=== PATIENT | female | born 1975 | race Two or more races ===

== ENCOUNTER 2020-07-06 07:50 | Emergency (ER) | payer OTHER ==
[~2020-07-06] VITALS: Ht 165.1 cm; Wt 72.7 kg
[2020-07-06 07:53] VITALS: BP 125/74
[2020-07-06] MEDS ORDERED: FAMOTIDINE 20 MG TABLET PO ONE (08:30)
[2020-07-06] MEDS ORDERED: PredniSONE 20 MG TABLET PO ONE (08:30)
[2020-07-06] MEDS ORDERED: DiphenhydrAMINE HCL 50 MG/ML VIAL IM ONE (08:30)
== END 2020-07-06 08:55 | disposition home or self-care (01) ==
LOC: EMS 07:50
DX: T78.40XA Allergy, unspecified, initial encounter (principal); Z90.710 Acquired absence of both cervix and uterus; X58.XXXA Exposure to other specified factors, initial encounter
CPT/HCPCS: 96372; 99283; J1200; J7512

== ENCOUNTER 2020-07-14 08:48 | Emergency (ER) | payer OTHER ==
[~2020-07-14] VITALS: Ht 165.1 cm; Wt 72.7 kg
[2020-07-14] MEDS ORDERED: DiphenhydrAMINE HCL 50 MG/ML VIAL IM ONE (10:00)
[2020-07-14] MEDS ORDERED: MethylPREDNISolone SOD SUCC 125 MG/2 ML VIAL IM ONE (10:00)
[2020-07-14 10:33] VITALS: BP 143/93
== END 2020-07-14 10:45 | disposition home or self-care (01) ==
LOC: EMS 08:54
DX: R21 Rash and other nonspecific skin eruption (principal); Z90.710 Acquired absence of both cervix and uterus
CPT/HCPCS: 96372; 99284; J1200; J2930

== ENCOUNTER 2020-07-25 06:36 | Emergency (ER) | payer OTHER ==
[~2020-07-25] VITALS: Ht 165.1 cm; Wt 73.6 kg
[2020-07-25] MEDS ORDERED: ACETAMINOPHEN 500 MG TABLET PO ONE (07:15)
[2020-07-25] MEDS ORDERED: KETOROLAC TROMETHAMINE 30 MG/ML VIAL IVP ONE (07:15)
[2020-07-25] MEDS ORDERED: SODIUM CHLORIDE 0.9% 1,000 ML IV ONE ×2 (07:15→07:45)
[2020-07-25 07:24] LABS: BASOPHILS % (AUTO) 0.2 % (0.0-2.0); EOSINOPHILS % (AUTO) 0.1 % (1.0-6.0); HEMATOCRIT 38.8 % (36-46); HEMOGLOBIN 12.8 g/dL (12.0-16.0); LYMPHOCYTES # (AUTO) 0.9 K/uL (1.0-4.8); MEAN CORPUSCULAR HEMOGLOBIN 30.4 pg (26.0-34.0); MEAN CORPUSCULAR HGB CONC 33.1 G/dL (31.0-37.0); MEAN CORPUSCULAR VOLUME 92 fL (80-100); MONOCYTES # (AUTO) 1.1 K/uL (0.1-1.0); NEUTROPHILS # (AUTO) 19.6 K/uL (1.8-7.7); PLATELET COUNT (AUTO) 246 K/uL (150-450); RED BLOOD CELL COUNT(AUTO) 4.22 MIL/uL (4.00-5.20); RED CELL DISTRIBUTION WIDTH 14.2 % (11.5-14.5)
[2020-07-25 07:26] LABS: NEUTROPHILS % (AUTO) 90.7 % (40.0-70.0)
[2020-07-25 07:53] LABS: ALANINE AMINOTRANSFERASE 16 U/L (12-78); ALBUMIN 3.4 g/dL (3.4-5.0); ALKALINE PHOSPHATASE 75 U/L (46-116); ANION GAP 10 mmol/L (8-16); ASPARTATE AMINOTRANSFERASE 12 U/L (15-37); BILIRUBIN,TOTAL 0.5 mg/dL (0.1-1.0); CALCIUM, TOTAL 8.3 mg/dL (8.8-10.5); CARBON DIOXIDE 28 mmol/L (22-29); CHLORIDE 98 mmol/L (98-107); GLOMERULAR FILTR. RATE CALC 54 mL/min (>60); GLUCOSE,RANDOM 94 mg/dL (70-110); HCG,QUANTITATIVE < 1 mIU/mL (0-6); LIPASE 77 U/L (73-393); SODIUM SERUM 136 mmol/L (136-145); TOTAL PROTEIN, SERUM 6.6 g/dL (6.4-8.2); UREA NITROGEN, BLOOD 7 mg/dL (7-18)
[2020-07-25 07:59] LABS: POTASSIUM 2.9 mmol/L (3.5-5.1)
[2020-07-25] MEDS ORDERED: POTASSIUM CHLORIDE 20 MEQ ER TABLET PO ONE (08:00)
[2020-07-25] MEDS ORDERED: POTASSIUM CHL 10 MEQ/WATER 50 ML IV ONE (08:00)
[2020-07-25 08:20] LABS: APPEARANCE,URINE CLEAR (CLEAR); BILIRUBIN,URINE NEGATIVE (NEGATIVE); GLUCOSE, URINE (UA) NEGATIVE (NEGATIVE); KETONES,URINE NEGATIVE (NEGATIVE); LEUKOCYTE ESTERASE ,URINE NEGATIVE (NEGATIVE); NITRATE,URINE NEGATIVE (NEGATIVE); OCCULT BLOOD,URINE SMALL (NEGATIVE); PH,URINE 5.5 (5.0-8.0); PROTEIN,URINE NEGATIVE (NEGATIVE); UROBILINOGEN,URINE 0.2 mg/dL (<=1.0)
[2020-07-25 08:31] LABS: BACTERIA,URINE None Seen /HPF (None Seen); RBC,URINE 0-2 /HPF (0-2); SQUAMOUS EPITHELIAL CELL,UR Few /LPF (None Seen)
[2020-07-25] MEDS ORDERED: SODIUM CHLORIDE 0.9% 100 ML ONE (08:36)
[2020-07-25] MEDS ORDERED: IOHEXOL 350 MG/ML 100 ML VIAL ONE (08:37)
[2020-07-25 09:40] VITALS: BP 94/57
[2020-07-25] MEDS ORDERED: CEPHALEXIN MONOHYDRATE 500 MG CAPSULE PO ONE (09:45)
== END 2020-07-25 09:54 | disposition home or self-care (01) ==
LOC: EMS 06:37
DX: N20.0 Calculus of kidney (principal); Z90.710 Acquired absence of both cervix and uterus
CPT/HCPCS: 36415; 71045; 74177; 80053; 81001; 83605; 83690; 84702; 85025; 87086; 96361; 96374; 99285; A9575; J1885; J3480; J7030; J7050; 87077

== ENCOUNTER 2021-07-02 17:35 | Emergency (ER) | payer OTHER ==
[~2021-07-02] VITALS: Ht 167.6 cm; Wt 76.8 kg
[2021-07-02 20:00] VITALS: BP 118/74
[2021-07-02] MEDS ORDERED: HydrOXYzine HCL 25 MG TABLET PO ONE (20:00)
[2021-07-02] MEDS ORDERED: HYDR-4527 PO (20:11)
[2021-07-02] MEDS ORDERED: PERM60CR19 TP (20:11)
[2021-07-02] MEDS ORDERED: MethylPREDNISolone SOD SUCC 125 MG/2 ML VIAL IM ONE (20:15)
== END 2021-07-02 20:39 | disposition home or self-care (01) ==
LOC: EMS 17:35
DX: R21 Rash and other nonspecific skin eruption (principal); L29.9 Pruritus, unspecified; L53.9 Erythematous condition, unspecified; Z90.710 Acquired absence of both cervix and uterus
CPT/HCPCS: 96372; 99283; J2930

== ENCOUNTER 2022-01-03 11:15 | Emergency (ER) | payer OTHER ==
[~2022-01-03] VITALS: Ht 165.1 cm; Wt 72.7 kg
[~2022-01-03 11:15] MED LIST: HYDR-4527 PO; PERM60CR19 TP
[2022-01-03] MEDS ORDERED: IBUP-1554 PO (14:43)
[2022-01-03] MEDS ORDERED: GABA-1181 PO (14:43)
[2022-01-03] MEDS ORDERED: CYCL-448 PO (14:43)
[2022-01-03] MEDS ORDERED: CEPH-558 PO (14:43)
[2022-01-03] MEDS ORDERED: BACL10TA PO (14:43)
[2022-01-03 15:00] VITALS: BP 136/83
== END 2022-01-03 15:09 | disposition home or self-care (01) ==
LOC: EMS 14:45
DX: M54.42 Lumbago with sciatica, left side (principal); L03.113 Cellulitis of right upper limb; Z90.710 Acquired absence of both cervix and uterus
CPT/HCPCS: 99283; Z7502

== ENCOUNTER 2022-04-18 10:00 | Emergency (ER) | payer OTHER ==
[~2022-04-18] VITALS: Ht 167.6 cm; Wt 72.7 kg
[~2022-04-18 10:00] MED LIST changes: +BACL10TA PO; +CEPH-558 PO; +CYCL-448 PO; +GABA-1181 PO; -HYDR-4527 PO; +IBUP-1554 PO; -PERM60CR19 TP
[2022-04-18] MEDS ORDERED: METHOCARBAMOL 500 MG TABLET PO ONE (14:30)
[2022-04-18] MEDS ORDERED: KETOROLAC TROMETHAMINE 60 MG/2 ML VIAL IM ONE (14:30)
[2022-04-18 14:51] LABS: GLUCOSE,POINT OF CARE 71 MG/DL (70-110)
[2022-04-18] MEDS ORDERED: IBUP-1554 PO (15:29)
[2022-04-18] MEDS ORDERED: GABA-1181 PO (15:29)
[2022-04-18] MEDS ORDERED: BACL10TA PO (15:29)
[2022-04-18] MEDS ORDERED: LIDO700A15 TP (15:29)
[2022-04-18 15:38] VITALS: BP 120/75
== END 2022-04-18 15:39 | disposition home or self-care (01) ==
LOC: EMS 10:03
DX: M54.42 Lumbago with sciatica, left side (principal); F12.90 Cannabis use, unspecified, uncomplicated; Z90.710 Acquired absence of both cervix and uterus
CPT/HCPCS: 99283; 82962; 96372; J1885

== ENCOUNTER 2022-12-11 15:31 | Emergency (ER) | payer OTHER ==
[~2022-12-11] VITALS: Ht 170.2 cm; Wt 68.2 kg
[~2022-12-11 15:31] MED LIST changes: -CEPH-558 PO; -CYCL-448 PO; +LIDO700A15 TP
[2022-12-11 15:42] VITALS: BP 123/84; PULSE 89; RESP 16; TEMP 98.3
[2022-12-11] MEDS ORDERED: CLOB15CR10 TP (15:55)
== END 2022-12-11 16:05 | disposition home or self-care (01) ==
LOC: EMS 15:33
DX: L25.8 Unspecified contact dermatitis due to other agents (principal); F12.90 Cannabis use, unspecified, uncomplicated; Z90.710 Acquired absence of both cervix and uterus
CPT/HCPCS: 99283; Z7502

== ENCOUNTER 2023-01-14 22:20 | Emergency (ER) | payer OTHER ==
[~2023-01-14] VITALS: Ht 160 cm; Wt 61.0 kg
[~2023-01-14 22:20] MED LIST changes: -BACL10TA PO; +CLOB15CR10 TP; -IBUP-1554 PO; -LIDO700A15 TP
[2023-01-14 22:25] VITALS: TEMP 98
[2023-01-14 22:45] VITALS: BP 115/71; PULSE 78; RESP 16
[2023-01-14] MEDS ORDERED: PERM59LI8 TP ×2 (23:40→23:53)
[2023-01-14] MEDS ORDERED: PERM60CR19 TP ×2 (23:40→23:53)
== END 2023-01-15 00:01 | disposition home or self-care (01) ==
LOC: EMS 22:22
DX: B86 Scabies (principal); B85.2 Pediculosis, unspecified; F12.90 Cannabis use, unspecified, uncomplicated; Z90.710 Acquired absence of both cervix and uterus
CPT/HCPCS: 99282; Z7502

== ENCOUNTER 2023-02-18 17:05 | Emergency (ER) | payer OTHER ==
[~2023-02-18] VITALS: Ht 165.1 cm; Wt 63.6 kg
[~2023-02-18 17:05] MED LIST changes: +PERM59LI8 TP; +PERM60CR19 TP
[2023-02-18 17:18] VITALS: TEMP 98.4
[2023-02-18] MEDS ORDERED: CHLO1CAP PO (18:55)
[2023-02-18 19:00] VITALS: BP 133/99; PULSE 134; RESP 16
== END 2023-02-18 22:08 | disposition home or self-care (01) ==
LOC: EMS 17:08
DX: B82.9 Intestinal parasitism, unspecified (principal); L25.9 Unspecified contact dermatitis, unspecified cause; F12.90 Cannabis use, unspecified, uncomplicated; Z90.710 Acquired absence of both cervix and uterus
CPT/HCPCS: 99283; Z7502

== ENCOUNTER 2023-03-04 21:15 | Emergency (ER) | payer OTHER ==
[~2023-03-04] VITALS: Ht 167.6 cm; Wt 72.7 kg
[~2023-03-04 21:15] MED LIST changes: +CHLO1CAP PO
[2023-03-04 21:56] VITALS: BP 131/85; PULSE 106; RESP 22; TEMP 98
[2023-03-04] MEDS ORDERED: HYDR-4808 PO (22:17)
[2023-03-04] MEDS ORDERED: PERM60CR19 TP (22:17)
[2023-03-04] MEDS ORDERED: CLOB15CR10 TP (22:17)
== END 2023-03-04 22:45 | disposition home or self-care (01) ==
LOC: EMS 21:15
DX: B82.9 Intestinal parasitism, unspecified (principal); R21 Rash and other nonspecific skin eruption; F41.9 Anxiety disorder, unspecified; Z90.710 Acquired absence of both cervix and uterus; Z91.040 Latex allergy status
CPT/HCPCS: 99283; Z7502

== ENCOUNTER 2024-03-08 10:51 | Emergency (ER) | payer OTHER ==
[~2024-03-08] VITALS: Ht 167.6 cm; Wt 68.2 kg
[~2024-03-08 10:51] MED LIST changes: +HYDR-4808 PO
[2024-03-08 11:00] VITALS: BP 113/87; PULSE 108; RESP 16; TEMP 98.6; O2SAT 100
[2024-03-08 11:48] LABS: BASOPHILS % (AUTO) 0.2 % (0.0-2.0); EOSINOPHILS % (AUTO) 5.5 % (1.0-6.0); HEMATOCRIT 39.6 % (36-46); HEMOGLOBIN 13.2 g/dL (12.0-16.0); LYMPHOCYTES % (AUTO) 17.8 % (22.0-44.0); MEAN CORPUSCULAR HEMOGLOBIN 28.3 pg (26.0-34.0); MEAN CORPUSCULAR HGB CONC 33.3 G/dL (31.0-37.0); MEAN CORPUSCULAR VOLUME 85 fL (80-100); MONOCYTES # (AUTO) 0.5 K/uL (0.1-1.0); MONOCYTES % (AUTO) 8.5 % (2.0-9.0); NEUTROPHILS # (AUTO) 3.7 K/uL (1.8-7.7); PLATELET COUNT (AUTO) 304 K/uL (150-450); RED BLOOD CELL COUNT(AUTO) 4.67 MIL/uL (4.00-5.20); RED CELL DISTRIBUTION WIDTH 14.5 % (11.5-14.5); WHITE BLOOD COUNT (AUTO) 5.5 K/uL (4.5-11.0)
[2024-03-08 11:56] LABS: ANION GAP 7 mmol/L (8-16); CALCIUM, TOTAL 9.1 mg/dL (8.8-10.5); CARBON DIOXIDE 28 mmol/L (22-29); CHLORIDE 102 mmol/L (98-107); CREATININE 0.68 mg/dL (0.60-1.30); GLOMERULAR FILTR. RATE CALC > 60 mL/min (>60); GLUCOSE,RANDOM 104 mg/dL (70-110); POTASSIUM 3.7 mmol/L (3.5-5.1); SODIUM SERUM 137 mmol/L (136-145); UREA NITROGEN, BLOOD 14 mg/dL (7-18)
[2024-03-08 12:05] LABS: TROPONIN I-HIGH SENSITIVITY 4 ng/L (<51)
[2024-03-08] MEDS: ACETAMINOPHEN 325 MG TABLET PO ONE (12:43)
[2024-03-08] MEDS: KETOROLAC TROMETHAMINE 30 MG/ML VIAL IVP ONE (12:43)
[2024-03-08] MEDS ORDERED: HYDR-4072 PO (13:24)
== END 2024-03-08 13:39 | disposition home or self-care (01) ==
LOC: EMS 10:51
DX: R07.9 Chest pain, unspecified (principal); M79.602 Pain in left arm; Z91.040 Latex allergy status; Z90.710 Acquired absence of both cervix and uterus
CPT/HCPCS: 99285; 96374; 71045; 80048; 84484; 85025; 85379; 36415; 93005; J1885